=== PATIENT | female | born 1990 | race African-American/Black ===

== ENCOUNTER 2018-12-07 22:33 | Emergency (ER) | payer MEDICARE ==
[~2018-12-07] VITALS: Ht 172.7 cm; Wt 68.0 kg
[2018-12-07] MEDS ORDERED: ACETAMINOPHEN 500MG TABLET PO ONE (23:45)
[2018-12-08 05:53] LABS: BASOPHILS % 0.7 % (0.0-2.0); EOSINOPHILS % 1.6 % (0.0-5.0); HEMATOCRIT. 39.6 % (36.0-48.0); HEMOGLOBIN. 13.1 g/dL (12.0-16.0); LYMPHOCYTES % 57.7 % (20.0-50.0); MEAN CORPUSCULAR HEMOGLOBIN 27.3 pg (28.0-32.0); MEAN CORPUSCULAR VOLUME 82.3 fL (81.0-99.0); MEAN PLATELET VOLUME 7.3 fl (7.4-10.4); MONOCYTES % 9.8 % (2.0-8.0); NEUTROPHILS % 30.2 % (40.0-76.0); PLATELET 251 x1000/uL (130-400); RED BLOOD CELL COUNT 4.81 mill/uL (4.2-5.4); RED CELL DISTRIBUTION WIDTH 14.4 % (11.6-14.6)
[2018-12-08 06:00] LABS: CHLORIDE 106 mEq/L (98-107)
[2018-12-08 06:04] LABS: ETHANOL BLOOD < 10 mg/dL
[2018-12-08 08:39] LABS: CLARITY URINE CLOUDY (CLEAR); COLOR URINE DARK YELLOW (YELLOW); KETONES URINE 1+ (NEGATIVE); LEUKOCYTE ESTERASE URINE TRACE (NEGATIVE); NITRITE URINE NEGATIVE (NEGATIVE); OCCULT BLOOD URINE 3+ (NEGATIVE); PROTEIN URINE TRACE (NEGATIVE); SPECIFIC GRAVITY URINE 1.042 (1.005-1.030); UROBILINOGEN URINE 0.2 E.U./dL (0.2-1.0)
[2018-12-08 09:15] LABS: *AMPHETAMINES SCREEN URINE NEGATIVE (NEGATIVE); *BARBITURATES SCREEN URINE NEGATIVE (NEGATIVE); *COCAINE SCREEN URINE NEGATIVE (NEGATIVE)
[2018-12-08 09:16] LABS: *BENZODIAZEPINES SCREEN URINE NEGATIVE (NEGATIVE); CANNABINOID URINE SCREEN NEGATIVE (NEGATIVE); METHADONE URINE SCREEN NEGATIVE (NEGATIVE); OPIATES URINE SCREEN NEGATIVE (NEGATIVE); PHENCYCLIDINE URINE SCREEN NEGATIVE (NEGATIVE)
[2018-12-08 16:00] VITALS: BP 118/82
== END 2018-12-08 16:12 | disposition home or self-care (01) ==
LOC: ER 22:33
DX: F32.9 Major depressive disorder, single episode, unspecified (principal); F43.9 Reaction to severe stress, unspecified
CPT/HCPCS: 36415; 80305; 80320; 81003; 81025; 99284; G0480

== ENCOUNTER 2022-05-12 19:43 | Observation (INO) | payer MEDICAID, MEDICARE ==
[~2022-05-12] VITALS: Ht 167.6 cm; Wt 90.7 kg
[2022-05-12] MEDS ORDERED: PNV1TABL61 PO (20:42)
[2022-05-12] MEDS ORDERED: DEXT 5%/LACTATED RINGERS 1,000 ML IV ONE (21:30)
[2022-05-12] MEDS ORDERED: ACETAMINOPHEN 650MG/20.3ML UDC PO PRN (21:30)
[2022-05-12] MEDS ORDERED: ONDANSETRON HCL 4MG/2ML INJ IV PRN (21:30)
[2022-05-12] MEDS ORDERED: ACETAMINOPHEN 500MG TABLET PO ONE (21:45)
[2022-05-12 22:19] LABS: CLARITY URINE CLOUDY (CLEAR); COLOR URINE DARK YELLOW (YELLOW); KETONES URINE TRACE (NEGATIVE); LEUKOCYTE ESTERASE URINE 2+ (NEGATIVE); NITRITE URINE NEGATIVE (NEGATIVE); OCCULT BLOOD URINE NEGATIVE (NEGATIVE); PH URINE 6.5 (4.5-8.0); PROTEIN URINE 2+ (NEGATIVE)
[2022-05-12 22:30] LABS: BASOPHILS % 0.3 % (0.0-2.0); EOSINOPHILS % 0.2 % (0.0-5.0); HEMATOCRIT. 32.7 % (36.0-48.0); HEMOGLOBIN. 10.8 g/dL (12.0-16.0); LYMPHOCYTES % 26.7 % (20.0-50.0); MEAN CORPUSCULAR HEMOGLOBIN 26.6 pg (28.0-32.0); MEAN CORPUSCULAR VOLUME 80.3 fL (81.0-99.0); MEAN PLATELET VOLUME 8.8 fl (7.4-10.4); MONOCYTES % 8.6 % (2.0-8.0); NEUTROPHILS % 64.2 % (40.0-76.0); PLATELET 256 x1000/uL (130-400); RED BLOOD CELL COUNT 4.07 mill/uL (4.2-5.4); RED CELL DISTRIBUTION WIDTH 14.7 % (11.6-14.6)
[2022-05-12 22:33] LABS: *AMPHETAMINES SCREEN URINE NEGATIVE (NEGATIVE); *BARBITURATES SCREEN URINE NEGATIVE (NEGATIVE); *BENZODIAZEPINES SCREEN URINE NEGATIVE (NEGATIVE); *COCAINE SCREEN URINE NEGATIVE (NEGATIVE); CANNABINOID URINE SCREEN NEGATIVE (NEGATIVE); METHADONE URINE SCREEN NEGATIVE (NEGATIVE); OPIATES URINE SCREEN NEGATIVE (NEGATIVE); PHENCYCLIDINE URINE SCREEN NEGATIVE (NEGATIVE)
[2022-05-12 22:34] LABS: INR 0.9; PARTIAL THROMBOPLASTIN TIME 27.3 sec (23.4-31.0); PROTHROMBIN TIME 10.1 sec (9.6-11.0)
[2022-05-12] MEDS ORDERED: DEXT 5%/LACTATED RINGERS 1,000 ML IV SCH (23:00)
[2022-05-12 23:02] LABS: HEPATITIS B SURFACE ANTIGEN NEGATIVE
[2022-05-12 23:16] LABS: CHLORIDE 107 mEq/L (98-107)
[2022-05-13] MEDS ORDERED: CEFAZOLIN 2,000 MG in DEXT 5% WATER 100 ML IV NR (00:45)
== END 2022-05-13 01:30 | disposition home or self-care (01) ==
LOC: INTOOBSV 19:43 → 8 EST LDRP 19:43
PROVIDERS: ADMIT Obstetrics & Gynecology; ATTEND Obstetrics & Gynecology
DX: O26.893 Other specified pregnancy related conditions, third trimester (principal); Z20.822 Contact with and (suspected) exposure to COVID-19; R10.13 Epigastric pain; R51.9 Headache, unspecified; R11.0 Nausea; N89.8 Other specified noninflammatory disorders of vagina; O62.9 Abnormality of forces of labor, unspecified; Z3A.37 37 weeks gestation of pregnancy; Z79.899 Other long term (current) drug therapy
CPT/HCPCS: 36415; 59025; 76805; 76818; 80053; 80305; 81003; 85025; 85610; 85730; 86592; 86762; 87340; 87426; 96365; G0378; J0690; J7060; 96360; 96372; 99281

== ENCOUNTER 2024-01-10 05:41 | Emergency (ER) | payer MEDICAID ==
[~2024-01-10] VITALS: Ht 167.6 cm; Wt 72.0 kg
[~2024-01-10 05:41] MED LIST: PNV1TABL61 PO
[2024-01-10 05:49] VITALS: TEMP 98.2; O2SAT 100
[2024-01-10 06:20] LABS: BASOPHILS % 0.9 % (0.0-2.0); EOSINOPHILS % 0.6 % (0.0-5.0); HEMATOCRIT. 39.1 % (36.0-48.0); HEMOGLOBIN. 12.7 g/dL (12.0-16.0); LYMPHOCYTES % 46.5 % (20.0-50.0); MEAN CORPUSCULAR HEMOGLOBIN 26.8 pg (28.0-32.0); MEAN CORPUSCULAR HGB CONC 32.5 g/dL (31.0-37.0); MEAN CORPUSCULAR VOLUME 82.3 fL (81.0-99.0); MEAN PLATELET VOLUME 7.6 fl (7.4-10.4); MONOCYTES % 6.1 % (2.0-8.0); NEUTROPHILS % 45.9 % (40.0-76.0); PLATELET 244 x1000/uL (130-400); RED BLOOD CELL COUNT 4.75 mill/uL (4.2-5.4); RED CELL DISTRIBUTION WIDTH 14.4 % (11.6-14.6); WHITE BLOOD COUNT 5.9 x1000/uL (4.5-11.0)
[2024-01-10 06:25] LABS: CHLORIDE 104 mEq/L (98-107); POTASSIUM 3.5 mEq/L (3.5-5.1); SODIUM 134 mEq/L (136-145)
[2024-01-10 06:26] LABS: CALCIUM 9.3 mg/dL (8.7-10.4); CARBON DIOXIDE 23 mEq/L (21-32)
[2024-01-10 06:31] LABS: CREATININE 0.6 mg/dL (0.6-1.0); GLUCOSE 85 mg/dL (70-105); UREA NITROGEN BLOOD 8 mg/dL (9-23)
[2024-01-10 06:46] LABS: B-HCG QUANTITATIVE 55599 mIU/mL (<3)
[2024-01-10 07:59] VITALS: BP 136/84; PULSE 73; RESP 17; O2SAT 99
== END 2024-01-10 08:03 | disposition home or self-care (01) ==
LOC: ER 05:53
DX: O20.9 Hemorrhage in early pregnancy, unspecified (principal); Z3A.01 Less than 8 weeks gestation of pregnancy
CPT/HCPCS: 36415; 76801; 80048; 84702; 85025; 86850; 86900; 99284

== ENCOUNTER 2024-08-14 11:15 | Emergency (ER) | payer MEDICAID ==
[~2024-08-14] VITALS: Ht 167.6 cm; Wt 77.1 kg
[2024-08-14 11:18] VITALS: O2SAT 100
[2024-08-14] MEDS: ACETAMINOPHEN 1000MG/100ML 100 ML IV ONE (12:24)
[2024-08-14 12:37] LABS: BASOPHILS % 0.5 % (0.0-2.0); DIFFERENTIAL COMMENT 0; EOSINOPHILS % 0.2 % (0.0-5.0); HEMOGLOBIN. 10.8 g/dL (12.0-16.0); MEAN CORPUSCULAR HEMOGLOBIN 25.7 pg (28.0-32.0); MEAN CORPUSCULAR HGB CONC 32.8 g/dL (31.0-37.0); MEAN CORPUSCULAR VOLUME 78.2 fL (81.0-99.0); MEAN PLATELET VOLUME 8.8 fl (7.4-10.4); MONOCYTES % 7.5 % (2.0-8.0); NEUTROPHILS % 71.8 % (40.0-76.0); PLATELET 307 x1000/uL (130-400); RED BLOOD CELL COUNT 4.23 mill/uL (4.2-5.4); RED CELL DISTRIBUTION WIDTH 15.2 % (11.6-14.6); WHITE BLOOD COUNT 7.6 x1000/uL (4.5-11.0)
[2024-08-14 12:45] LABS: CHLORIDE 108 mEq/L (98-107); POTASSIUM 3.3 mEq/L (3.5-5.1); SODIUM 138 mEq/L (136-145)
[2024-08-14 12:46] LABS: CALCIUM 9.4 mg/dL (8.7-10.4); CARBON DIOXIDE 20 mEq/L (21-32)
[2024-08-14 12:51] LABS: GLUCOSE 94 mg/dL (70-105); UREA NITROGEN BLOOD 5 mg/dL (9-23)
[2024-08-14 12:52] LABS: ALANINE AMINOTRANSFERASE 24 IU/L (10-49); ASPARTATE AMINOTRANSFERASE 36 IU/L (<34)
[2024-08-14 12:53] LABS: ALBUMIN 3.7 g/dL (3.2-4.8); BILIRUBIN TOTAL 0.6 mg/dL (0.1-1.0); PROTEIN TOTAL 7.1 g/dL (6.0-8.3)
[2024-08-14 13:25] LABS: CREATININE 0.4 mg/dL (0.6-1.0)
[2024-08-14 13:34] LABS: PARTIAL THROMBOPLASTIN TIME 29.1 sec (23.4-31.0); PROTHROMBIN TIME 10.3 sec (9.6-11.0)
[2024-08-14 14:08] VITALS: BP 107/70; PULSE 98; RESP 15; TEMP 36.8; O2SAT 100
== END 2024-08-14 14:23 | disposition short-term general hospital (02) ==
LOC: ER 11:15
DX: O26.893 Other specified pregnancy related conditions, third trimester (principal); R10.30 Lower abdominal pain, unspecified; Z3A.36 36 weeks gestation of pregnancy
CPT/HCPCS: 36415; 76805; 80053; 85025; 86850; 86900; 96365; 99285; J0131